=== PATIENT | female | born 1990 | race Hispanic/Latino ===

== ENCOUNTER 2017-10-24 11:04 | Emergency (ER) | payer SELFPAY | END 2017-10-24 12:12 | disposition home or self-care (01) | LOC: ERS 11:04 | DX: K02.9 Dental caries, unspecified (principal); Z87.891 Personal history of nicotine dependence | CPT/HCPCS: 99282 ==

== ENCOUNTER 2018-12-23 15:26 | Emergency (ER) | payer SELFPAY | END 2018-12-23 16:47 | disposition home or self-care (01) | LOC: ERS 15:26 | DX: L73.9 Follicular disorder, unspecified (principal); E03.9 Hypothyroidism, unspecified; Z87.891 Personal history of nicotine dependence | CPT/HCPCS: 10060 ==

== ENCOUNTER 2020-03-13 17:35 | Emergency (ER) | payer OTHER, SELFPAY ==
[2020-03-14 14:44] LABS: SARS-CoV-2 MS2 Positive; SARS-CoV-2 N Gene Positive; SARS-CoV-2 S Gene Positive; SARS-CoV-2 orf1ab Positive
== END 2020-03-13 17:53 | disposition home or self-care (01) ==
LOC: ERS 17:35
DX: U07.1 COVID-19 (principal); Z87.891 Personal history of nicotine dependence; E03.9 Hypothyroidism, unspecified
CPT/HCPCS: 87635; 99283; U0003

== ENCOUNTER 2020-05-15 22:47 | Emergency (ER) | payer SELFPAY ==
[2020-05-15] MEDS ORDERED: Ondansetron ODT 4 MG TAB ONE (23:38)
== END 2020-05-15 23:46 | disposition home or self-care (01) ==
LOC: ERS 22:47
DX: K58.9 Irritable bowel syndrome, unspecified (principal); R11.0 Nausea; E03.9 Hypothyroidism, unspecified; Z87.891 Personal history of nicotine dependence
CPT/HCPCS: 99283; Q0162

== ENCOUNTER 2021-01-05 08:22 | Emergency (ER) | payer SELFPAY ==
[2021-01-05 09:01] LABS: #Basophils 0.1 thou/uL (0.0-0.2); #Eosinphils 0.1 thou/uL (0.0-0.7); #Lymphocytes 2.1 thou/uL (1.20-3.40); #Monocytes 0.5 thou/uL (0.11-0.59); #Neutrophils 3.2 thou/uL (1.40-6.50); %Basophils 0.9 % (0.0-1.0); %Lymphocytes 35.8 % (21.0-51.0); %Neutrophils 54.4 % (42.0-75.0); Hemoglobin 13.7 g/dL (12.0-16.0); Mean Corpuscular HGB CONC 32.1 g/dL (32.0-36.0); Mean Corpuscular Volume 93.6 fL (78.0-98.0); Mean Platelet Volume 8.3 fL (7.4-10.4); Platelet Count 264 thou/uL (130-400); RBC Distribution Width 11.8 % (11.5-14.5); Red Blood Cell (RBC) Count 4.57 mill/uL (4.20-5.40)
[2021-01-05 09:07] LABS: BHCG - Serum Negative (NEGATIVE); Pregs Control Background? CLEAR/WHITE (CLR/WHITE); Pregs Control Bar Appear? YES (CONTROL BAR)
[2021-01-05] MEDS ORDERED: Ondansetron PF 4 MG/2 ML Vial ONE (09:15)
[2021-01-05] MEDS ORDERED: Ondansetron ODT 4 MG TAB ONE (09:16)
[2021-01-05 09:31] LABS: ALT (SGPT) 208 U/L (8-55); AST (SGOT) 50 U/L (5-34); Alkaline Phosphatase 180 U/L (40-110); Anion Gap 12 mmol/L (10-20); BUN (Urea Nitrogen) 13 mg/dL (7.0-18.7); Bilirubin, Total 0.5 mg/dL (0.2-1.2); Calc. Creatinine Clearance 0 mL/min (70-130); Carbon Dioxide 24 mmol/L (22-29); Chloride 107 mmol/L (98-107); Globulin 3.1 g/dL (2.4-3.5); Glucose 123 mg/dL (70-105); Lipase 32 U/L (8-78); Potassium 3.9 mmol/L (3.5-5.1); Protein, Total 7.1 g/dL (6.0-8.3); Sodium 139 mmol/L (136-145)
[2021-01-05 09:48] LABS: Bacteria/HPF 1+ HPF (None Seen); Bilirubin Negative (Negative); Blood, Urine Negative (Negative); Clarity Clear (Clear); Glucose, Urine (Dipstick) Normal (Negative); Ketone, Urine Negative (Negative); Leukocyte 250 Leu/uL (Negative); Nitrite Negative (Negative); Protein, Urine (Dipstick) 10 mg/dL (Neg-Trace); RBC/HPF 0-3 HPF (0-3); Specific Gravity, Urine 1.027 (1.002-1.036); Urobilinogen Normal mg/dL (Less than 2); pH, Urine 6.5 (5.0-9.0)
[2021-01-05 17:20] LABS: SARS-CoV-2 PCR by NAA Not Detected (NotDetected)
== END 2021-01-05 11:15 | disposition home or self-care (01) ==
LOC: ERS 08:22
DX: R10.9 Unspecified abdominal pain (principal); R19.7 Diarrhea, unspecified; R74.01 Elevation of levels of liver transaminase levels; R11.0 Nausea; E03.9 Hypothyroidism, unspecified; Z20.822 Contact with and (suspected) exposure to COVID-19; Z87.891 Personal history of nicotine dependence
CPT/HCPCS: 36415; 80053; 81003; 81015; 83690; 84703; 85025; 87635; 96372; 99284; J0500; J2405; Q0162; U0003; U0005

== ENCOUNTER 2022-06-23 11:07 | Emergency (ER) | payer SELFPAY | END 2022-06-23 14:15 | disposition left against medical advice (07) | LOC: ERS 11:07 | DX: Z53.21 Procedure and treatment not carried out due to patient leaving prior to being seen by health care provider (principal) | CPT/HCPCS: 70450 ==

== ENCOUNTER 2022-08-06 12:28 | Emergency (ER) | payer SELFPAY | END 2022-08-06 13:07 | disposition home or self-care (01) | LOC: ERS 12:28 | DX: J18.9 Pneumonia, unspecified organism (principal); E03.9 Hypothyroidism, unspecified; E11.9 Type 2 diabetes mellitus without complications; Z87.891 Personal history of nicotine dependence | CPT/HCPCS: 99282 ==